=== PATIENT | female | born 1985 | race Caucasian/White ===

== ENCOUNTER 2016-12-13 17:20 | Emergency (ER) | payer BC ==
[2016-12-13] MEDS ORDERED: NS 0.9% 1000 ML* 1,000 ML IV ONE (17:41)
--- NOTE | 2016-12-13 17:41 | UC ---
Dizzy HPI HPI Summary: 31 yr old female with dizziness, n/v/diarrhea that started today. She has had gerd for a few days now. appetite was fine yesterday. she feels like she will pass out. she has thrown up here several times and c/o significant amount of watery diarrhea. Her son had stomach surgery for celiac's disease on 01/07 and she hasnt had any sleep since then. has been very stressed and tired taking care of him. He is doing better. Denies . current menses. nexplonon. Denies any cardiac hx. Interestingly she had a 5 day admission at [facility] in 2012. d/c summary reviewd. she was dx'd with sepsis from an enteric pathogen from [facility]. - History Of Current Complaint Stated Complaint: DIZZINESS,NAUSEA,HEARTBURN Time Seen by Provider: 12/13/16 17:27 Hx Last Menstrual Period: DOES NOT HAVE REG PERIODS -IMPLAMON AND IS BREAST FEEDING - Allergies/Home Medications Allergies/Adverse Reactions: Allergies Allergy/AdvReac Type Severity Reaction Status Date / Time Penicillins Allergy Severe Throat Verified 12/13/16 17:57 swelling and trouble breathing Clindamycin Allergy Swelling Verified 12/13/16 17:57 Of Face,Lips,& Throat Home Medications: Home Medications Esomeprazole Magnesium [Nexium 24Hr] 20 mg PO DAILY 12/13/16 [History Confirmed 12/13/16] PMH/Surg Hx/FS Hx/Imm Hx Previously Healthy: Yes Endocrine History Of: Denies: Thyroid Disease Comment Only: Diabetes - FAMILY HX MOTHER & FATHER Cardiovascular History Of: Denies: Hypertension Respiratory History Of: Reports: Pneumonia Denies: COPD, Asthma GI/ History Of: Denies: Ulcer - Surgical History Surgical History: Yes Surgery Procedure, Year, and Place: 2005, 2014 - Family History Known Family History: Positive: Other - celiac son - Social History Alcohol Use: Weekly Alcohol Amount: 2 wine Substance Use Type: None Smoking Status (MU): Never Smoked Tobacco Have You Smoked in the Last Year: No - Immunization History Most Recent Influenza Vaccination: Fall 2014 Most Recent Tetanus Shot: 2011 Review of Systems Constitutional: Chills, Fatigue Skin: Negative Eyes: Negative ENT: Negative Respiratory: Negative Cardiovascular: Negative Gastrointestinal: Vomiting, Diarrhea, Other - nausea Genitourinary: Negative Motor: Negative Neurovascular: Negative Musculoskeletal: Negative Neurological: Negative Psychological: Negative All Other Systems Reviewed And Are Negative: Yes Physical Exam Triage Information Reviewed: Yes Appearance: Ill-Appearing - needs help with ambulation coming in. wheelchair given to go to . appears dizzy and lethargic. she drove herself here. Vital Signs Reviewed: Yes Eye Exam: Normal ENT: Positive: Pharynx normal - tongue dry. Dental Exam: Normal Neck exam: Normal Neck: Positive: Supple, Nontender, No Lymphadenopathy Respiratory: Positive: Lungs clear, Normal breath sounds, No respiratory distress, No accessory muscle use. Negative: Crackles, Rhonchi, Stridor, Wheezing Cardiovascular: Positive: No Murmur, Pulses Normal, Brisk Capillary Refill, Tachycardia Abdomen Description: Positive: Soft, Other: - mild diffuce tenderness. Negative : Distended, Guarding Bowel Sounds: Positive: Present Musculoskeletal Exam: Normal Neurological: Positive: Fatigued, Lethargic Psychological Exam: Normal Skin Exam: Normal Re-Evaluation - Re-Evaluation First Eval Re-Evaluation Time: 18:00 Change: Improved - nausea improved, more talkative. Second Eval Re-Evaluation Time: 16:50 Change: Improved - smiling, no nausea. feels better. 1st Liter saline done. Has not had to urinate yet. no further V/D since initial presentation. will hand 2nd Liter saline. Third Eval Re-Evaluation Time: 19:05 Change: Worse - After lying supine to get some rest, pt felt shaky and cold. SBP decreased to high 70s with heart rate up to 120. She felt a little better after sitting up with BP rpt by byself manual rt arm Lg cuff 90/60, HR 100. I advised ER as I feel that she needs further supervision and evaluation and she does not want to do so. She feels strongly that she wants to go home and if feeling worse she will have her neighbor take her to [place]. refuses ambulance. I have asked her to reconsider as I am concerned of sepsis, hypotension and potential /disability. Request rpt EKG at this time. 2nd L NS has been initiated. she denies nausea. Fourth Eval Re-Evaluation Time: 20:15 Change: Improved - and young son Amilcar here. She is smiling and looks improved. BP has improved. IV d/c'd and he is driving her to ER. Dizzy Course/Dx - Course Course Of Treatment: IVF NS 1 Liter/hr. Zofran 4 mgs ODT. EKG - Sinus tachy at 101, nml axis, no AV/IV changes, no ST/T changes. QTc prolonged at 471. compared to EKG from 05/06, QTC is now prolonged and it was nml in 05/06. They decline ambulance AMA - aware of risks. Rpt EKG done after 1 L NS, sinus tachy at 102 with normalized QTc. - Differential Dx/Diagnosis Differential Diagnosis/HQI/PQRI: Vasovagal Reaction, Other - vomiting/diarrhea/ nausea Provider Diagnoses: Pre-syncope, dehydration, vomiting, diarrhea - Physician Notifications Discussed Patient Care With: KELVIN Bazan at [facility] - reviewed case with her in detail and she accepts the pt. She will be going by private care as she refuses ambulance. IV will be removed before d/c. 19:50. Pt then verbalized that she changed her mind and wishes to go to [place] instead. I spoke with Zarina Brooks at [facility] with above information and she accepts pt. Time Discussed With Above Provider: 17:55 Discharge - Discharge Plan Condition: Guarded Disposition: AGAINST MEDICAL ADVICE Referrals: Nisreen Sandoval MD [Primary Care Provider] -
[2016-12-13] MEDS ORDERED: Ondansetron ODT TAB* 4 MG PO ONE (17:42)
[2016-12-13] MEDS ORDERED: NS 0.9% 1000 ML* 2,000 ML IV ONE (18:59)
[2016-12-13 19:57] VITALS: BP 108/60
== END 2016-12-13 20:20 | disposition left against medical advice (07) ==
LOC: UCCORT 17:20
DX: E86.0 Dehydration (principal); R55 Syncope and collapse; R11.2 Nausea with vomiting, unspecified; R19.7 Diarrhea, unspecified; K21.9 Gastro-esophageal reflux disease without esophagitis; Z88.0 Allergy status to penicillin; Z88.1 Allergy status to other antibiotic agents
CPT/HCPCS: 93005; 96360; 96361; 99213; G0463

== ENCOUNTER 2017-12-07 10:52 | Emergency (ER) | payer BC ==
[2017-12-07 13:00] VITALS: BP 120/71
--- NOTE | 2017-12-07 13:18 | UC ---
UC General HPI - HPI Summary HPI Summary: 32 yo female c/o fever, st, cough. Progressively worse last couple days. However, started to feel bad approx one week ago, specifically L axillae swollen lymph nodes, malaise. Better now. Wed / Wed (today is Wednesday) had "food poisoning," specifically n/v/d after eating out. Sx resolved by Wednesday. Wednesday current symptoms aggressive. No rash. GI normalized. No urinary sx. Has been taking cough drops. Sore throat is bothersome. + fever, last took antipyretic last evering. - History of Current Complaint Chief Complaint: UCGeneralIllness Stated Complaint: FLU SYMPTOMS Time Seen by Provider: 12/07/17 13:01 Hx Obtained From: Patient Hx Last Menstrual Period: 12/02/17 Pain Intensity: 5 - Allergy/Home Medications Allergies/Adverse Reactions: Allergies Allergy/AdvReac Type Severity Reaction Status Date / Time Penicillins Allergy Severe Anaphylatic Verified 12/07/17 12:50 Shock clindamycin Allergy Unknown THROAT Verified 12/07/17 12:50 ITCHES Home Medications: Home Medications FLUoxetine CAP* [PROzac CAP*] 20 mg PO DAILY 12/07/17 [History Confirmed ] PMH/Surg Hx/FS Hx/Imm Hx Previously Healthy: Yes - Surgical History Surgical History: Yes Surgery Procedure, Year, and Place: 2005, 2014 - Family History Known Family History: Positive: None, Other - celiac son - Social History Alcohol Use: Occasionally Alcohol Amount: 3 WINE Substance Use Type: None Smoking Status (MU): Former Smoker Have You Smoked in the Last Year: No When Did the Patient Quit Smoking/Using Tobacco: 2003 - Immunization History Most Recent Influenza Vaccination: Fall 2014 Most Recent Tetanus Shot: 2011 Review of Systems Constitutional: Fever Skin: Negative Eyes: Negative ENT: Sore Throat, Nasal Discharge, Sinus Congestion Respiratory: Cough Cardiovascular: Negative Gastrointestinal: Other - see hpi Genitourinary: Negative Motor: Negative Neurovascular: Negative Musculoskeletal: Negative Neurological: Negative Psychological: Negative Is Patient Immunocompromised?: No All Other Systems Reviewed And Are Negative: Yes Physical Exam Triage Information Reviewed: Yes Appearance: Well-Nourished - looks tired. Nontoxic. Sitting up, leaning back. Vital Signs: Initial Vital Signs Temp 102.4 F 12/07/17 12:51 Pulse 115 12/07/17 12:51 Resp 20 12/07/17 12:51 BP 120/71 12/07/17 12:51 Pulse Ox 100 12/07/17 12:51 Eye Exam: Normal - normal except mild sclerae injection ou ENT: Positive: Pharyngeal erythema - post pharynx + edematous + erythematous. No sores / exudates. Airway patent. No stridor., TM dull, Other - mm a little dry Neck exam: Normal Neck: Positive: Supple, Nontender, No Lymphadenopathy Respiratory Exam: Other - BS equal, mild exp wheeze / rhonchi scattered, nory base. No rtx. No distress. Cardiovascular Exam: Other - HR regular rhythm, tachycardic as appropriate with fever. Correlates with radial pulse. Non-diaphoretic. Abdominal Exam: Normal Abdomen Description: Positive: Nontender, Soft Musculoskeletal Exam: Normal - moves x 4 ext's gait steady. L axilla - adenopathy not appreciated. Neurological Exam: Normal - grossly nonfocal Psychological Exam: Normal - conversing easily and appropriately Skin Exam: Normal - no visible or reported rash Course/Dx - Course Course Of Treatment: Reviewed results - rst neg, influenza + A. D/w pt coa / tx plan. Questions as posed answered to the best of my ability. Ibuprofen 600mg po in CCC. - Differential Dx - Multi-Symptom Differential Diagnoses: Urinary Tract Infection Provider Diagnoses: Influenza A. Febrile illness Discharge - Sign-Out/Discharge Documenting (check all that apply): Discharge - Discharge Plan Condition: Stable Disposition: HOME Prescriptions: Albuterol HFA INHALER* [Ventolin HFA Inhaler*] 1 - 2 puff INH Q4H PRN #1 mdi PRN Reason: Wheezing Oseltamivir CAP* [Tamiflu CAP*] 75 mg PO BID #10 cap Patient Education Materials: Influenza (ED) Forms: *Work Release Referrals: Nisreen Sandoval MD [Primary Care Provider] - Additional Instructions: INFLUENZA A POSITIVE Strep test negative. Drink plenty of fluids. Please go to the Emergency Department for worse or new problems. - Billing Disposition and Condition Condition: STABLE Disposition: HOME
[2017-12-07] MEDS ORDERED: Ibuprofen TAB* 600 MG PO ONE (13:20)
== END 2017-12-07 14:00 | disposition home or self-care (01) ==
LOC: UCCORT 10:52
DX: J10.1 Influenza due to other identified influenza virus with other respiratory manifestations (principal); N39.0 Urinary tract infection, site not specified; R50.9 Fever, unspecified; Z88.0 Allergy status to penicillin; Z88.1 Allergy status to other antibiotic agents; Z87.891 Personal history of nicotine dependence
CPT/HCPCS: 87502; 87651; 99212; A9270-GY; G0463

== ENCOUNTER 2018-11-10 10:06 | Emergency (ER) | payer BC ==
--- NOTE | 2018-11-10 11:18 | UC ---
Lower Extremity/Ankle HPI - HPI Summary HPI Summary: Patient is here after a fall down stairs, she slid down the stairs with her right foot stuck underneath her. - History of Current Complaint Stated Complaint: S/P FALL,RIGHT ANKLE INJURY Time Seen by Provider: 11/10/18 11:06 Hx Obtained From: Patient Hx Last Menstrual Period: 12/02/17 ?: No Onset/Duration: Sudden Onset, Lasting Days Severity Initially: Severe Severity Currently: Severe Aggravating Factor(s): Standing, Ambulation Alleviating Factor(s): OTC Meds Able to Bear Weight: No - Allergies/Home Medications Allergies/Adverse Reactions: Allergies Allergy/AdvReac Type Severity Reaction Status Date / Time Penicillins Allergy Severe Anaphylatic Verified 11/10/18 11:50 Shock clindamycin Allergy Unknown THROAT Verified 11/10/18 11:50 ITCHES Home Medications: Home Medications Multivitamin [Multivitamins] 1 cap PO DAILY 11/10/18 [History Confirmed 11/10/18 ] PMH/Surg Hx/FS Hx/Imm Hx Previously Healthy: Yes - Surgical History Surgical History: Yes Surgery Procedure, Year, and Place: 2005, 2014 - Family History Known Family History: Positive: Hypertension, Other - celiac son - Social History Alcohol Use: Occasionally Alcohol Amount: 3 WINE Substance Use Type: None Smoking Status (MU): Former Smoker Have You Smoked in the Last Year: No When Did the Patient Quit Smoking/Using Tobacco: 2003 - Immunization History Most Recent Influenza Vaccination: Fall 2014 Most Recent Tetanus Shot: 2011 Review of Systems All Other Systems Reviewed And Are Negative: Yes Constitutional: Positive: Negative Skin: Positive: Negative Eyes: Positive: Negative ENT: Positive: Negative Respiratory: Positive: Negative Cardiovascular: Positive: Negative Gastrointestinal: Positive: Negative Genitourinary: Positive: Negative Motor: Positive: Negative Neurovascular: Positive: Negative Musculoskeletal: Positive: Arthralgia, Decreased ROM, Edema, Myalgia Neurological: Positive: Negative Psychological: Positive: Negative Is Patient Immunocompromised?: No Physical Exam Triage Information Reviewed: Yes Appearance: Well-Nourished, Pain Distress Vital Signs Reviewed: Yes Eye Exam: Normal ENT Exam: Normal Dental Exam: Normal Neck exam: Normal Respiratory Exam: Normal Respiratory: Positive: Chest non-tender, Lungs clear, Normal breath sounds Cardiovascular Exam: Normal Cardiovascular: Positive: RRR, No Murmur, Pulses Normal Abdominal Exam: Normal Bowel Sounds: Positive: Present Musculoskeletal: Positive: No Edema, Strength Limited @ - cant bear weight, ROM Limited @ - due to pain in all idrections., Other: - palpable tenderness mid foot Neurological Exam: Normal Psychological Exam: Normal Skin Exam: Normal Lower Extremity Course/Dx - Course Course Of Treatment: hx obtained, exam performed ,meds reviewed, xray obtained and is negative for fracture, kvng and gel splint applied. patient denies need for any more pain control at this time. - Differential Dx/Diagnosis Differential Diagnosis/HQI/PQRI: Contusion, Dislocation, Fracture (Closed), Sprain, Strain Provider Diagnosis: Right ankle sprain, Right foot sprain Discharge - Sign-Out/Discharge Documenting (check all that apply): Patient Departure All imaging exams completed and their final reports reviewed: Yes - Discharge Plan Condition: Stable Disposition: HOME Patient Education Materials: Foot Sprain (ED), Ankle Sprain (ED) Referrals: Nisreen Sandoval MD [Primary Care Provider] - Dre Bedoya MD [Medical Doctor] - Additional Instructions: 1. rest, ice, compress with the Kvng wrap and use the crutches to start working into weight bearing. 2. The gel splint will give extra support, you can use the blue sides as ice. 3. Continue with ibuprofen and tylenol for pain. 4. If the pain is not improving in the next week and you are still not able to bear weight. follow up with the orthopedic. - Billing Disposition and Condition Condition: STABLE Disposition: Home
[2018-11-10 11:50] VITALS: BP 110/77
== END 2018-11-10 12:11 | disposition home or self-care (01) ==
LOC: UCCORT 10:06
DX: S93.401A Sprain of unspecified ligament of right ankle, initial encounter (principal); S93.601A Unspecified sprain of right foot, initial encounter; Z88.0 Allergy status to penicillin; Z88.1 Allergy status to other antibiotic agents; Z87.891 Personal history of nicotine dependence; W10.9XXA Fall (on) (from) unspecified stairs and steps, initial encounter; Y92.9 Unspecified place or not applicable
CPT/HCPCS: 99213; G0463